=== PATIENT | male | born 1965 | race Two or more races ===

== ENCOUNTER → 2017-01-30 | Outpatient (CLI) | payer BC ==
[~2017-01-30] MED LIST: ASPI-664 PO; HYDR12.58 PO; VALS80TA2 PO
--- NOTE | 2017-01-30 12:39 | RADRPT ---
PROCEDURE: XR right knee. CLINICAL INDICATION: Knee pain TECHNIQUE: AP weightbearing, PA weightbearing, lateral weightbearing and sunrise views are availab le for review. COMPARISON: None available FINDINGS: ACL repair with hardware in place There is moderate to severe osteoarthrosis involving the medial tibial femoral compartment, lateral tibial femoral compartment and patellofemoral compartment. This is associated with joint space narro wing, subchondral sclerosis and osteophytosis. There is otherwise normal mineralization, architecture and alignment. No fractures are identified. No osseous lesions are identified. The soft tissues are unremarkable. IMPRESSION: ACL repair Moderate to severe osteoarthrosis involving the medial tibial femoral compartment, lateral tibial fe moral compartment and patellofemoral compartment. RPTAT: HGDB .Ruben Nixon MD, Date Time Electronically viewed and signed by .Ruben Nixon MD, on 01/30/2017 12:38 .B/
--- NOTE | 2017-01-30 14:39 | RADRPT ---
PROCEDURE: Limited x-ray of both lower extremities. CLINICAL INDICATION: Bilateral leg pain. TECHNIQUE: Single frontal view of both lower extremities was obtained from the hips to the calves. COMPARISON: None. FINDINGS: The hips are grossly normal. There is a right knee anterior cruciate ligament repair with hardware noted. There are moderate degenerative changes of both knees with right worse than left. IMPRESSION: 1. Right knee ACL repair. 2. Moderate degenerative changes of both knees. RPTAT: QQ .Harshal Sage MD, Date Time Electronically viewed and signed by .Harshal Sage MD, on 01/30/2017 14:38 .R/
== END | disposition home or self-care (01) ==
LOC: HKI 10:31
PROVIDERS: ATTEND Orthopaedic Surgery
DX: M25.561 Pain in right knee (principal); M17.11 Unilateral primary osteoarthritis, right knee
CPT/HCPCS: 73564; 77073; Z7500; G0463

== ENCOUNTER 2017-02-02 07:42 | Inpatient (IN) | payer BC ==
[~2017-02-02] VITALS: Ht 180.3 cm; Wt 82.7 kg
[2017-02-02] VITALS (27 sets, daily range): BP systolic 114–149; BP diastolic 56–78; PULSE 84–105; RESP 10–20; Ht 180.3 cm; Wt 82.7 kg
[2017-02-02] MEDS ORDERED: PREGABALIN 300 MG PO X1 PO ONE (08:00)
[2017-02-02] MEDS ORDERED: oxyCODONE (CR) 10 MG TAB [oxyCONTIN] X1 DOSE PO ONE (08:00)
[2017-02-02] MEDS ORDERED: CELECOXIB 400 MG PO X1 DOSE PO ONE (08:00)
[2017-02-02] MEDS ORDERED: EXPAREL NOTE (BUPIVICAINE LIPOSOMAL) XX SCH (08:00)
[2017-02-02] MEDS ORDERED: BUPIVACAINE LIPOSOME/PF 266 MG/20 ML VIAL INFIL ONE (08:00)
[2017-02-02] MEDS ORDERED: TRANEXAMIC ACID 820 MG in SOD CHLORIDE 0.9% 91.8 ML IV ONE (08:00)
[2017-02-02] MEDS ORDERED: CEFAZOLIN 2GM/50 ML (PMX) 50 ML X1 BEFORE INCISION IVPB ONE (08:00)
[2017-02-02] MEDS ORDERED: traMADOL 50 MG TAB X 1 DOSE PO ONE (08:00)
[2017-02-02] MEDS ORDERED: PAIN COCKTAIL-CEFUROXIME IRR ONE ×7 (08:00)
[2017-02-02] MEDS ORDERED: TRANEXAMIC ACID 820 MG in SOD CHLORIDE 0.9% 100 ML IVPB ONE (08:00)
[2017-02-02] MEDS ORDERED: VALS80TA2 PO (08:22)
[2017-02-02] MEDS ORDERED: ASPI-664 PO (08:22)
[2017-02-02] MEDS ORDERED: HYDR12.58 PO (08:22)
[2017-02-02] MEDS ORDERED: FENTAnyl 50 MCG/ML VIAL ONE (09:32)
[2017-02-02] MEDS ORDERED: DEXAMETHASONE 4 MG/ML 1 ML INJ ONE (09:32)
[2017-02-02] MEDS ORDERED: ONDANSETRON 4 MG INJ ONE (09:32)
[2017-02-02] MEDS ORDERED: PROPOFOL 100 ML ONE (09:32)
[2017-02-02] MEDS ORDERED: MIDAZOLAM 1 MG/ML 2 ML INJ ONE (09:32)
[2017-02-02] MEDS ORDERED: GLYCOPYRROLATE 0.4 MG INJ ONE (09:32)
[2017-02-02] MEDS ORDERED: CEFAZOLIN 1 GM INJ ONE ×2 (09:32)
[2017-02-02] MEDS ORDERED: PROPOFOL 0 ML ONE (09:32)
[2017-02-02] MEDS ORDERED: ROCURONIUM 50 MG INJ ONE (09:32)
[2017-02-02] MEDS ORDERED: NEOSTIGMINE 3 MG/3 ML SYRINGE ONE (09:32)
--- NOTE | 2017-02-02 10:18 | HPN ---
Date/Time of Note Date/Time of Note DATE: 02/02/17 TIME: 10:16 Interval H&P Admission Note Pt. seen H&P reviewed: No system changes No change from H&P on 01/25/17 by DOUG Wilkinson ERIK N. MD Feb 02, 2017 10:18
[2017-02-02] MEDS ORDERED: SODIUM CL BACTERIOSTATIC 30 ML INJ ONE (10:25)
[2017-02-02] MEDS ORDERED: POLYMYXIN B 500000 UNIT INJ ONE (10:26)
[2017-02-02] MEDS ORDERED: VANCOMYCIN 1 GM INJ ONE (10:26)
[2017-02-02] MEDS: LACTATED RINGER'S 1,000 ML IV SCH ×4 (10:40→22:18)
[2017-02-02] MEDS ORDERED: METOCLOPRAMIDE 10 MG INJ ONE (11:03)
[2017-02-02] MEDS ORDERED: BACITRACIN 50000 UNITS INJ IRR ONE (11:59)
[2017-02-02] MEDS ORDERED: ONDANSETRON 4 MG INJ IV PRN ×2 (12:00→14:30)
[2017-02-02] MEDS ORDERED: HYDROmorphONE (0.2 MG/ML) 10ML SYG IV PRN ×3 (12:00)
[2017-02-02] MEDS ORDERED: LABETALOL HCL 20MG INJ IV PRN (12:00)
[2017-02-02] MEDS ORDERED: EPHEDrine SULFATE 50 MG/5 ML SYG IV PRN (12:00)
[2017-02-02] MEDS ORDERED: FENTAnyl 50 MCG/ML VIAL IV PRN ×3 (12:00)
[2017-02-02] MEDS ORDERED: MEPERIDINE 25 MG INJ IV PRN (12:00)
[2017-02-02] MEDS ORDERED: hydrALAzine 20 MG INJ IV PRN (12:00)
[2017-02-02] MEDS: traMADol 50 MG TAB PO SCH ×2 (12:00→18:16)
[2017-02-02] MEDS ORDERED: DIPHENHYDRAMINE 50 MG INJ IV PRN (12:00)
[2017-02-02] MEDS ORDERED: TRIMETHOBENZAMIDE 100 MG/ML VIAL IM PRN (12:00)
[2017-02-02] MEDS ORDERED: MIDAZOLAM 1 MG/ML 2 ML INJ IV PRN (12:00)
--- NOTE | 2017-02-02 14:15 | OPR ---
Date/Time of Note Date/Time of Note DATE: 02/02/17 TIME: 14:13 Operative Report Free Text/Dictation Dictation # [id number] Procedure Date: Feb 02, 2017 Preoperative Diagnosis Right Knee OA Postoperative Diagnosis Same Operation Performed Right TKA Surgeon: JULIAN THORNTON MD digital sales assistant: LISSETTE MAURICE PA-C Anesthesia: spinal Anesthesiologist: Chidi Hernandez M.D. Tourniquet Time: 96 minutes Estimated Blood Loss: 50 - 100 ml's Specimens Bone and soft tissue Tubes/Drains Hemovac x 1 Complications: None Pt Condition Post Procedure: stable Disposition: PACU JULIAN THORNTON MD Feb 02, 2017 14:14
[2017-02-02] MEDS ORDERED: ASPIRIN (EC) 325 MG TAB PO ONE (14:30)
[2017-02-02] MEDS ORDERED: HYDROmorphONE 1 MG/ML SYG IV PRN (14:30)
[2017-02-02] MEDS ORDERED: NACL 0.9% 3 ML SYG IV SCH (14:30)
[2017-02-02] MEDS ORDERED: oxyCODONE 5 MG TAB PO PRN ×2 (14:30)
[2017-02-02] MEDS ORDERED: NA PHOSPHATE/BIPHOS 133 ML ENEMA PR PRN (14:30)
[2017-02-02] MEDS ORDERED: BISACODYL 10 MG SUPP PR PRN (14:30)
[2017-02-02] MEDS ORDERED: DIPHENHYDRAMINE 25 MG CAP PO PRN (14:30)
--- NOTE | 2017-02-02 14:43 | PN ---
Date/Time of Note Date/Time of Note DATE: 02/02/17 TIME: 14:41 Assessment/Plan Lines/Catheters IV Catheter Type (from Nrsg): Peripheral IV Assessment/Plan Assessment/Plan Stable in PACU, s/p right TKA -continue antibiotics until drain removed -pain meds as needed -ASA/SCDs for DVT prophylaxis -OOB with PT -monitor drain -check AM labs -d/c guardado in AM XR of the right knee is pending at this time Subjective 24 Hr Interval Summary Stable in PACU. Moving all extremities. Denies any pain. Drowsy from anesthesia. Exam/Review of Systems Vital Signs Vitals Vital Signs Date Time Temp Pulse Resp B/P Pulse Ox O2 Delivery O2 Flow Rate FiO2 02/02/17 14:15 102 10 115/60 100 Nasal Cannula 2.0 02/02/17 14:13 99.1 Exam Free Text/Dictation Dressing dry Incision clean, dry, and intact without redness or drainage Thigh soft 5/5 Quadriceps, Tibialis Anterior, EHL, Gastroc, Soleus, Peroneals Normal sensation Palpable DT/PT, CR <2 sec No distal edema LISSETTE MAURICE PA-C Feb 02, 2017 14:43
[2017-02-02 14:44] LABS: HEMATOCRIT 35.1 % (42.0-52.0); HEMOGLOBIN 11.9 g/dl (14.0-18.0)
--- NOTE | 2017-02-02 14:50 | OPR ---
DATE OF OPERATION: 02/02/2017 PREOPERATIVE DIAGNOSIS: Right knee osteoarthritis. POSTOPERATIVE DIAGNOSIS: Right knee osteoarthritis. OPERATION PERFORMED: Right total knee arthroplasty. SURGEON: Mike Thornton MD TEST PREPARER: KARELY Larkin COMPONENTS USED: DePuy Attune size 8 femoral component, size 7 tibial baseplate , 6-mm polyethylene insert, and a 38-patellar button. ANESTHESIA: Spinal, plus general endotracheal intubation, plus periarticular injection. ANESTHESIOLOGIST: Dr. Hernandez TOURNIQUET TIME: 96 minutes. ESTIMATED BLOOD LOSS: 50 mL. INTRAVENOUS FLUIDS: 2500 mL of crystalloid. SPECIMENS: Bone and soft tissue. DRAINS: Hemovac x1. COMPLICATIONS: None. DISPOSITION: Patient tolerated the procedure well and was taken to the recovery room in stable condition. INDICATIONS: The patient is a 51-year-old gentleman who has had worsening pain in the right knee, with radiographic evidence of severe osteoarthritis. He had a previous ACL reconstruction that has failed. He has tried a multitude of nonsurgical means of treatment to address his pain, including activity modifications, pain medications, intra-articular injections and ambulatory assist devices. Despite these measures, he has had worsening pain and I felt he would benefit from a total knee arthroplasty. The risks, benefits, and alternatives of the procedure were explained in detail to the patient. I explained the risks of the surgery to include but not be limited to, bleeding and possible need for blood transfusion; infection; pain; stiffness; neurovascular injury with possible numbness, weakness, and/or paralysis anywhere from the knee down to the toes; fracture; instability; dislocation; wear and/or loosening of the prosthesis and possible need for future revision; blood clots; pulmonary embolism; and anesthetic complications such as heart attack, stroke, GI bleed, pneumonia, and/or . Ample time was allowed for the patient to ask questions, all of which were addressed and answered. The patient understood the risks involved and wished to proceed. Informed consent was signed prior to the procedure. PROCEDURE: The patient's right knee was initialed with a marking pen in the preoperative area to identify the correct operative site. The patient was brought to the operating room and transferred from the [facility] to the operating table where a spinal anesthetic was administered. The patient was then anesthetized and intubated. A Rosario catheter was placed. A timeout was performed to confirm that the right leg was the correct operative site. The patient was given 2 g of Ancef within one hour prior to the procedure. A tourniquet was placed on the operative proximal thigh. The operative knee and lower extremity were prepped and draped in the usual sterile fashion. The operative lower extremity was elevated and exsanguinated with an Esmarch tourniquet. The proximal thigh tourniquet was inflated to 300 mmHg. The knee was flexed. A midline incision was made and carried down through the subcutaneous tissue and fat with sharp dissection. Limited medial and lateral flaps were raised. A parapatellar arthrotomy, valgus cut was set using the Scint-X-Align navigation device, setting the varus valgus to zero degrees and the flexion at 3 degrees. Synovial fluid was normal in color and consistency. The patella was everted and the knee flexed. There were severe tricompartmental osteoarthritic changes noted. A medial release was performed at the joint line to the midcoronal plane. The ACL and PCL and remnants of the menisci were excised. The OrthoAlign navigation device was then pinned into place on the distal femur and set to 0 degrees varus/valgus and 3 degrees of flexion. The distal cutting block was pinned into place to resect 11 mm of bone. The oscillating saw was used to make the cut. The tibia was subluxed anteriorly. The tibial OrthoAlign navigation device was then pinned into place such that the proximal portion of the guide was pinned in place with centered over the junction of the medial and middle third of the tibial tubercle and with the proximal probe placed at the posterior aspect of the ACL footprint. The guide was than set to 0 degrees varus/valgus and 3 degrees of posterior slope. The cutting block was then pinned in place and the oscillating saw was used to make the cut. The tibia was sized. The extension gap was checked and accommodated a 6-mm spacer block with the knee in full extension. There was no varus or valgus instability. At this point, the femur was sized with the posterior referencing guide. Two holes were drilled in 3 degrees of external rotation. The two holes were in line with the transepicondylar axis, perpendicular to [place]'s line, and in line with the tibial cutoff jig brought up with the knee flexed 90 degrees and tensed with 2 lamina spreaders, suggesting the femoral rotation was correct. The four-in-one cutting block was pinned into place. The anterior and posterior cuts and chamfer cuts were made with the oscillating saw. The flexion gap was checked and accommodated the 6-mm spacer block at 90 degrees. There was no varus or valgus instability, suggesting the flexion and extension gaps were now equal. The central box was cut out on the femur. The tibia was drilled and punched in proper rotation. Trial components were placed into position with a trial insert. The patella was cut down from 26 mm down to 16 mm and sized. Three holes were drilled and the trial button placed in position. With all the trials now in place, the knee was taken through range of motion and came to full extension as evidenced by the fact that with the foot on my abdomen and axial loading, there was no tendency for the knee to flex. The knee was able to be flexed to 125 degrees with good patellar tracking with no lateral tilt or subluxation. At this point, I was satisfied with the overall range of motion, stability, and patellar tracking. The trials were removed. The real components were opened. Two bags of cement were mixed, one with and one without premixed antibiotic. The knee was irrigated with antibiotic saline and sucked dry. Once the cement was in a doughy stage, the real components were cemented into place. The knee was held in full extension, and the patellar component was held with a patellar clamp. All excess cement was removed with curettes. As the cement was hardening, the synovial/capsular layer was infiltrated with a mixture of 150 mg of 0.5% Bupivacaine, 8 mg of Duramorph, 300 mcg of epinephrine, 30 mg of Toradol, 100 mcg of clonidine, 750 mg of cefuroxime and 86 mL of normal saline, followed by an injection of 266 mg of liposomal Bupivacaine. A Hemovac drain was placed in the deep portion of the wound and brought out the anterolateral thigh. Once the cement was completely hardened, the trial liner was removed, and the real insert was opened. The tourniquet was let down, and there was good hemostasis. The knee was then irrigated with a mixture of betadine/saline and then antibiotic saline with pulsatile lavage. The real insert was impacted into the tibia and reduced onto to the femur. The arthrotomy was closed with a few interrupted #1 Ethibond in a figure-of- eight fashion, and then closed in a watertight fashion with a running #2 Stratafix suture. Knee flexion was checked against gravity and came to 125 degrees. The subcutaneous layer was irrigated and closed with 2-0 Statafix, and then 3-0 Vicryl and then kindra on the skin. The wound was covered with an occlusive dressing, and secured with cast padding and a bias dressing. The drain was secured with 3-0 nylon. The sponge and needle counts were correct at the end of the case. The patient was then awakened, extubated, and taken to the recovery room in stable condition. Dictated By: MIKE THORNTON MD EZ/NTS Conf#: [id number] DID#: [id number] MTDD
[2017-02-02] MEDS: CEFAZOLIN 2 GM/50 ML (PMX) 50 ML IVPB SCH (15:14)
[2017-02-02 15:36] LABS: CALCIUM 8.8 mg/dl (8.4-10.2); CREATININE 0.85 mg/dl (0.61-1.24)
[2017-02-02 15:38] LABS: POTASSIUM 3.4 mmol/L (3.5-5.1)
--- NOTE | 2017-02-02 16:32 | RADRPT ---
PROCEDURE: Intraoperative imaging of the right knee with fluoroscopy. CLINICAL INDICATION: Right knee pain. Intraoperative. TECHNIQUE: 6 images of the right knee were obtained in the operating room with an image intensifie r. No radiologist was in attendance. 0.2 minutes of fluoroscopy time was used. COMPARISON: 01/30/2017. FINDINGS: Images demonstrate components of a total right knee arthroplasty and removal of the screw in the pro ximal right tibia. IMPRESSION: 1. Intraoperative imaging of the right knee. RPTAT: QQ .Harshal Sage MD, MD Date Time Electronically viewed and signed by .Harshal Sage MD, on 02/02/2017 16:31 .R/
--- NOTE | 2017-02-02 16:32 | RADRPT ---
PROCEDURE: Right knee radiographs. CLINICAL INDICATION: Right knee pain. Postop. TECHNIQUE: Two views. Frontal and lateral. COMPARISON: Intraoperative imaging done earlier the same day. FINDINGS: There is no fracture or dislocation. Anterior skin kindra and surgical drain are noted. There is a screw in the distal lateral femur fr om prior anterior cruciate ligament repair. There is a total right knee arthroplasty which appears satisfactory. There is no lytic or blastic lesion. There is no joint effusion. IMPRESSION: 1. Satisfactory postoperative appearance of the right knee. RPTAT: QQ .Harshal Sage MD, MD Date Time Electronically viewed and signed by .Harshal Sage MD, on 02/02/2017 16:32 .R/
[2017-02-02] MEDS ORDERED: TRANEXAMIC ACID 830 MG in SOD CHLORIDE 0.9% 100 ML IVPB ONE ×2 (17:30→20:30)
[2017-02-02] MEDS: ACETAMINOPHEN 1000MG/100ML IV 100 ML IVPB SCH (18:16)
[2017-02-02] MEDS: PANTOPRAZOLE (EC) 40 MG TAB PO SCH (18:16)
[2017-02-02] MEDS: PREGABALIN 50 MG CAP PO SCH (20:12)
[2017-02-02] MEDS: DOCUSATE SODIUM 100 MG CAP PO SCH (20:12)
[2017-02-03] MEDS: ACETAMINOPHEN 1000MG/100ML IV 100 ML IVPB SCH ×3 (00:13→12:03)
[2017-02-03] MEDS: traMADol 50 MG TAB PO SCH ×5 (00:14→23:36)
[2017-02-03 00:19] VITALS: BP 94/50; PULSE 73; RESP 16
[2017-02-03] MEDS: CEFAZOLIN 2 GM/50 ML (PMX) 50 ML IVPB SCH ×2 (01:11→09:37)
[2017-02-03] MEDS: LACTATED RINGER'S 1,000 ML IV SCH ×6 (04:00→23:38)
--- NOTE | 2017-02-03 04:07 | CONS ---
DATE OF ADMISSION: 02/02/2017 DATE OF CONSULTATION: 02/02/17 REASON FOR CONSULTATION: Medical management. PHYSICIAN REQUESTING CONSULTATION: Dr. Mike Patterson HISTORY OF PRESENT ILLNESS: This is a pleasant 51-year-old gentleman with past medical history of hypertension who had right knee surgical intervention about 20 years ago and was doing pretty well until the past several years during which he has been having right knee pain with worsening of the pain for the past 2 to 3 years with radiographic evidence of severe arthritis. He had previous ACL reconstruction that has failed. He has tried multiple nonsurgical means of treatment to address his pain including activity modification, pain management, intraarticular injection, and devices. Despite these measures , he has had worsening of the pain and has been seen and evaluated by orthopedic surgeon. It was felt that he would benefit from total knee arthroplasty. The risks and benefits of the surgery were discussed with him, and he has decided to proceed with surgical intervention. On 02/02/2017, after signing consent, the patient was taken to OR, and under spinal plus general endotracheal intubation, plus periarticular injection, the patient had a right total knee arthroplasty which he tolerated the procedure well and was taken to recovery room. His vitals were found to be stable. At this time, the patient denies having any chest pain, shortness of breath, nausea, vomiting, or diarrhea. No headache, dizziness, or lightheadedness. No change in visual acuity, diplopia, or photophobia. No abdominal pain. No dysuria, hematuria, urgency, incontinence. No change in the color of stool. No change in appetite. The patient does live alone. He does not have support at his house. There is no recent travel history. No sick contact. The complaint was right knee pain with worsening of the pain for the past several years. PAST MEDICAL AND SURGICAL HISTORY: 1. Hypertension. 2. History of right knee ACL tear status post surgical intervention. MEDICATIONS: 1. Aspirin. 2. Hydrochlorothiazide. 3. Losartan. ALLERGIES: NO KNOWN DRUG ALLERGIES. FAMILY HISTORY: Noncontributory. SOCIAL HISTORY: Negative x3 for smoking, alcohol, illicit drugs. REVIEW OF SYSTEMS: As above per HPI. Otherwise, the 12 point review of systems has been found to be negative. PHYSICAL EXAMINATION: VITAL SIGNS: Temperature 98.1, pulse 85, respiration rate 20, blood pressure 116/59, saturating 98% on room air. GENERAL APPEARANCE: The patient is lying in bed comfortably without any distress. He is awake, alert, oriented. He is able to answer my questions properly. EYES AND ENT: Conjunctivae and lids are normal. Pupils are normal. Extraocular normal. Hearing grossly normal. Lips, teeth, and gums are normal. Oral mucosa is moist. NECK: Supple. Trachea is midline. No lymphadenopathy. RESPIRATORY: Effort is normal. Clear to auscultation bilaterally. CARDIOVASCULAR: Normal S1, S2. Regular rhythm and rate. No murmur, no bruits , no edema. Peripheral pulses, radial pulses palpable. Cap refill is normal. CHEST: Normal expansion of thorax during inspiration. GASTROINTESTINAL: Abdomen is soft, nontender, not distended. Bowel sounds present. No guarding, no rebound. GENITOURINARY: Deferred. MUSCULOSKELETAL: Upper extremity within normal limits. Left lower extremity within normal limits. Right lower extremity status post right knee arthroplasty. Surgical site is wrapped with Eric bandage with ____ measures. Full range of motion in bilateral feet and ankles. NEUROLOGIC: Cranial nerves II through XII are grossly intact. PSYCHIATRIC: Normal judgment and insight. Alert and oriented x3. Mood and affect is normal. LABORATORY WORK AND IMAGING: Hemoglobin 11.9, hematocrit 35.1. Sodium 138, potassium 3.4, chloride 100, bicarbonate 26, BUN 14, creatinine 0.85, glucose 165, calcium 8.8. ASSESSMENT AND PLAN: 1. Right knee osteoarthritis. The patient is status post right total knee arthroplasty. Continue pain medication and PT and OT evaluate and treat. Continue to monitor drain. The patient was treated with cefazolin during the course of surgery. We will continue antibiotics. 2. Essential hypertension, well controlled on medical management. 3. For deep venous thrombosis prophylaxis, on aspirin as per orthopedic surgeon recommendation. 4. For gastrointestinal prophylaxis, on Protonix. We will continue to monitor the patient closely. Further recommendations, management, and treatment as per clinical course. Dictated By: JOEL NOVAK/DEE DEE Conf#: [id number] DID#: [id number] JENNIFFER
[2017-02-03 05:10] LABS: HEMATOCRIT 33.5 % (42.0-52.0)
[2017-02-03 05:18] LABS: POTASSIUM 4.1 mmol/L (3.5-5.1)
[2017-02-03 05:21] LABS: CREATININE 0.8 mg/dl (0.61-1.24)
[2017-02-03 05:22] LABS: CALCIUM 8.9 mg/dl (8.4-10.2)
[2017-02-03] MEDS: PANTOPRAZOLE (EC) 40 MG TAB PO SCH ×2 (05:53→17:28)
[2017-02-03 08:14] VITALS: BP 129/66; RESP 18
[2017-02-03] MEDS: DOCUSATE SODIUM 100 MG CAP PO SCH ×2 (08:29→21:00)
[2017-02-03] MEDS: ASPIRIN (EC) 325 MG TAB PO SCH ×2 (08:29→21:00)
[2017-02-03] MEDS: CELECOXIB 200 MG CAP PO SCH (08:29)
[2017-02-03] MEDS: PREGABALIN 50 MG CAP PO SCH ×2 (08:30→21:00)
[2017-02-03] MEDS: HYDROCHLOROTHIAZIDE 12.5 MG CAP PO SCH (08:30)
[2017-02-03] MEDS: VALSARTAN 80 MG TAB PO SCH (08:30)
--- NOTE | 2017-02-03 08:38 | PN ---
Date/Time of Note Date/Time of Note DATE: 02/03/17 TIME: 08:36 Assessment/Plan Lines/Catheters IV Catheter Type (from Nrsg): Peripheral IV Rosario in Place (from Nrsg): Yes Assessment/Plan Assessment/Plan Stable POD #1, s/p right TKA -d/c abx -pain meds as needed -ASA/SCDs for DVT prophylaxis -drain removed -OOB with PT -check AM labs -encouraged using towel roll and avoid putting anything behind knee -d/c planning. Home versus [facility] upon discharge Subjective 24 Hr Interval Summary No acute overnight events. Denies significant pain, but complaining of some mild pain behind the knee. VSS, afebrile. Discharge home versus SNF when stable. Exam/Review of Systems Vital Signs Vitals Vital Signs Date Time Temp Pulse Resp B/P Pulse Ox O2 Delivery O2 Flow Rate FiO2 02/03/17 08:14 98.2 86 18 129/66 100 02/03/17 00:19 Room Air 02/02/17 14:45 2.0 Intake and Output 02/02/17 02/02/17 02/03/17 15:00 23:00 07:00 Intake Total 2600 ml 1255 ml 1445 ml Output Total 370 ml 1215 ml 2400 ml Balance 2230 ml 40 ml -955 ml Exam Free Text/Dictation Hemovac: 235cc Dressing dry Incision clean, dry, and intact without redness or drainage Thigh soft 5/5 Quadriceps, Tibialis Anterior, EHL, Gastroc, Soleus, Peroneals Normal sensation Palpable DT/PT, CR <2 sec No distal edema Results Result Diagram: 02/03/17 0445 02/03/17 0445 LISSETTE MAURICE PA-C Feb 03, 2017 08:38
[2017-02-03] MEDS ORDERED: HYDROCODONE/APAP (7.5/325) TAB PO PRN (09:00)
--- NOTE | 2017-02-03 10:08 | PN ---
Date/Time of Note Date/Time of Note DATE: 02/03/17 TIME: 10:05 Assessment/Plan VTE Prophylaxis VTE Prophylaxis Intervention: other Lines/Catheters IV Catheter Type (from Nrs): Saline Lock Urinary Cath still in place: No Reason Cath still needed: other (indicate) Assessment/Plan Chief Complaint/Hosp Course ASSESSMENT AND PLAN: 1. Right knee osteoarthritis. The patient is status post right total knee arthroplasty. Continue pain medication and PT and OT evaluate and treat. Continue postsurgical care 2. Essential hypertension, well controlled on medical management. 3. Anemia, likely postoperatively, follow-up iron panel and treat accordingly 4. For deep venous thrombosis prophylaxis, on aspirin as per orthopedic surgeon recommendation. 5. For gastrointestinal prophylaxis, on Protonix. We will continue to monitor the patient closely. Further recommendations, management, and treatment as per clinical course. Problems: Subjective 24 Hr Interval Summary Free Text/Dictation Patient denies any chest pain or shortness of breath Tolerating oral intake Drain has been removed this morning by orthopedic surgeon Denies of any pain in lower extremity Exam/Review of Systems Vital Signs Vitals Vital Signs Date Time Temp Pulse Resp B/P Pulse Ox O2 Delivery O2 Flow Rate FiO2 02/03/17 08:14 98.2 86 18 129/66 100 02/03/17 00:19 Room Air 02/02/17 14:45 2.0 Intake and Output 02/02/17 02/02/17 02/03/17 15:00 23:00 07:00 Intake Total 2600 ml 1255 ml 1445 ml Output Total 370 ml 1215 ml 2400 ml Balance 2230 ml 40 ml -955 ml Exam General: The patient is well-developed, Not in acute distress. HEENT: Atraumatic, normocephalic. The pupils are equal and round . Neck: Supple with full range of motion. Chest: Normal expansion of the thorax during inspiration Lungs: Clear to auscultation bilaterally Heart: Normal S1-S2, Regular rhythm and rate. Abdomen: Soft , nontender, nondistended , bowel sounds are present. Extremities: Right knee surgical site is dry and clean with dry dressing, no edema no cyanosis Neurologic: Normal mental status,The patient is awake, alert and oriented . Results Result Diagram: 02/03/17 0445 02/03/17 0445 Results 24 hrs Laboratory Tests Test 02/02/17 14:40 02/03/17 04:45 Hemoglobin 11.9 L 11.0 L Hematocrit 35.1 L 33.5 L Sodium Level 138 138 Potassium Level 3.4 L 4.1 Chloride Level 100 101 Carbon Dioxide Level 26 28 Anion Gap 15 13 Blood Urea Nitrogen 14 14 Creatinine 0.85 0.80 Glucose Level 165 143 Calcium Level 8.8 8.9 Medications Medications Current Medications Lactated Ringer's (Lr) 1,000 ml @ 100 mls/hr Q10H IV Last administered on 02/03 08:28; Admin Dose 100 MLS/HR; Start 02/02/17 at 08:00 Miscellaneous Information 1 ea NOTE XX ; Start 02/02/17 at 08:00; Stop 02/06/17 at 07:59 Hydrochlorothiazide (Hydrochlorothiazide) 12.5 mg DAILY PO Last administered on 02/03/17 08:30; Admin Dose 12.5 MG; Start 02/03/17 at 09:00 Valsartan 80 mg 80 mg DAILY PO Last administered on 02/03/17 08:30; Admin Dose 80 MG; Start 02/03/17 at 09:00 Lactated Ringer's (Lr) 1,000 ml @ 125 mls/hr Q8H IV Last administered on 05:53; Admin Dose 125 MLS/HR; Start 02/02/17 at 14:09 Celecoxib 200 mg 200 mg DAILY PO Last administered on 02/03/17 08:29; Admin Dose 200 MG; Start 02/03/17 at 09:00 Acetaminophen (Ofirmev 1000mg/ 100ml Iv) 100 ml @ 400 mls/hr Q6 IVPB Last administered on 02/03/17 05:52; Admin Dose 400 MLS/HR; Start 02/02/17 at 18:00 ; Stop 02/03/17 at 17:59 Tramadol HCl (Ultram) 50 mg Q6 PO Last administered on 02/03/17 05:53; Admin Dose 50 MG; Start 02/02/17 at 12:00; Stop 02/05/17 at 11:59 Hydromorphone HCl (Dilaudid) 1 mg Q3H PRN IV PAIN LEVEL 8-10; Start 02/02/17 at 14:30 Ondansetron HCl (Zofran Inj) 4 mg Q6H PRN IV NAUSEA AND/OR VOMITING; Start at 14:30 Bisacodyl (Dulcolax Supp) 10 mg Q12H PRN OK CONSTIPATION; Start 02/02/17 at 14: 30 Magnesium Hydroxide (Milk Of Mag) 30 ml BID PRN PO CONSTIPATION; Start at 14:30 Sodium Biphosphate/ Sodium Phosphate (Fleet Enema) 133 ml DAILY PRN OK CONSTIPATION; Start 02/02/17 at 14:30 Docusate Sodium (Colace) 100 mg BID PO Last administered on 02/03/17 08:29; Admin Dose 100 MG; Start 02/02/17 at 21:00 Diphenhydramine HCl (Benadryl) 25 mg Q6H PRN PO PRURITUS; Start 02/02/17 at 14: 30 Aspirin (Ecotrin) 325 mg BID PO Last administered on 02/03/17 08:29; Admin Dose 325 MG; Start 02/03/17 at 09:00 Pantoprazole (Protonix Tab) 40 mg BID@06,18 PO Last administered on 02/03/17 05:53; Admin Dose 40 MG; Start 02/02/17 at 18:00 Pregabalin (Lyrica) 50 mg BID PO Last administered on 02/03/17 08:30; Admin Dose 50 MG; Start 02/02/17 at 21:00 Acetaminophen/ Hydrocodone Bitart ([place] (7.5-325)) 1 tab Q4H PRN PO PAIN LEVEL 1-3; Start 02/03/17 at 09:00 Acetaminophen/ Hydrocodone Bitart ([place] (7.5-325)) 2 tab Q4H PRN PO PAIN LEVEL 4-7; Start 02/03/17 at 09:00 JOEL LYMAN MD Feb 03, 2017 10:08
[2017-02-03 11:14] LABS: ADD UMIC YES; URINE BILIRUBIN (Dip) NEGATIVE (NEGATIVE); URINE BLOOD (Dip) 3+ (NEGATIVE); URINE COLOR LT. YELLOW (YELLOW); URINE GLUCOSE (Dip) NEGATIVE (NEGATIVE); URINE KETONES (Dip) NEGATIVE (NEGATIVE); URINE LEUKOCYTE ESTERASE (Dip) NEGATIVE (NEGATIVE); URINE NITRITE (Dip) NEGATIVE (NEGATIVE); URINE TOTAL PROTEIN (Dip) NEGATIVE (NEGATIVE); URINE UROBILINOGEN (Dip) 0.2 E.U./dL (0.1-1.0)
[2017-02-03 11:44] LABS: BACTERIA,URINE FEW
[2017-02-03] MEDS: HYDROCODONE/APAP (7.5/325) TAB PO PRN ×2 (14:21→21:02)
[2017-02-03 19:40] VITALS: BP 136/77; RESP 20
[2017-02-04] MEDS: LACTATED RINGER'S 1,000 ML IV SCH ×3 (06:09→14:09)
[2017-02-04] MEDS: traMADol 50 MG TAB PO SCH ×4 (06:23→23:31)
[2017-02-04] MEDS: PANTOPRAZOLE (EC) 40 MG TAB PO SCH ×2 (06:23→17:50)
[2017-02-04] MEDS: HYDROCODONE/APAP (7.5/325) TAB PO PRN (06:48)
[2017-02-04 07:09] LABS: HEMATOCRIT 32.4 % (42.0-52.0); HEMOGLOBIN 10.4 g/dl (14.0-18.0)
[2017-02-04 07:49] LABS: CALCIUM 8.6 mg/dl (8.4-10.2); CREATININE 0.89 mg/dl (0.61-1.24); IRON 20 ug/dl (35-150)
[2017-02-04 07:58] LABS: TOTAL IRON BINDING CAPACITY 267 ug/dl (241-421)
[2017-02-04 08:07] VITALS: BP 102/60; RESP 16
--- NOTE | 2017-02-04 08:38 | PDOCDIS ---
Discharge Instructions DIAGNOSIS Discharge Diagnosis: s/p right TKA CONDITION Patient Condition: Good HOME CARE INSTRUCTIONS: Diet Instructions: RegularSpecial Diet: REGULAR ACTIVITY: Activity Restrictions: Slowly Increase Activity Rest between Activity Avoid heavy lifting Do not operate Machinery Do not operate Power Tool Avoid Heavy Housework Keep Limb Elevated Bathing Restrictions: Shower FOLLOW UP/APPOINTMENTS Appointments follow up in the office in 1 week OTHER ORDERS: Other Orders: S/P TKA Physical Therapy: Three times per week at home x 2 weeks Daily in Rehab/SNF WB STATUS: WBAT 1. Strengthening exercises for both upper and un-operated lower extremities. 2. Gait training with front wheeled walker 3. Active range of motion exercises to operative knee. 4. When not working on knee range of motion exercises, distal towel roll under operative ankle/distal calf to promote full extension. 5. DO NOT PUT ANYTHING BEHIND OPERATIVE KNEE!!! 6. Quadriceps and hamstring strengthening. 7. May switch to cane in contra lateral hand 6 weeks after surgery. 8. Physical Therapy can open case if nursing is not available. 9. Use Ice Machine as instructed from date of surgery while at rest 3X/day. 10. Patient requires mobile SCDs to reduce risk of developing DVT following TKA. Patient will use the mobile SCDs for 30 days postoperatively. Bathing assistance by home health aide twice weekly if Medicare patient. Occupational Therapy: Evaluation for assistive devices and ADL training. Wound Care: Keep incision dry & covered with Tegaderm until first visit with Dr. Rocha Anticoagulation Orders: Enteric Coated Aspirin 325 mg po bid x 6 weeks from date of surgery Follow-up:Call for an appointment with Dr. Rocha in 1 week after discharged from hospital at DME Orders: FWMarissa, 3-in-1 Commode, Polar ice machine, Mobile SCDs LISSETTE MAURICE PA-C Feb 04, 2017 08:38
[2017-02-04] MEDS ORDERED: TRAM50TA2 PO (08:40)
[2017-02-04] MEDS ORDERED: GABA300C PO (08:40)
[2017-02-04] MEDS ORDERED: PANT40TA4 PO (08:40)
[2017-02-04] MEDS ORDERED: HYDR-905 PO (08:40)
[2017-02-04] MEDS: VALSARTAN 80 MG TAB PO SCH ×2 (09:00→09:14)
--- NOTE | 2017-02-04 09:04 | PN ---
Date/Time of Note Date/Time of Note DATE: 02/04/17 TIME: 09:02 Assessment/Plan Lines/Catheters IV Catheter Type (from Nrsg): Saline Lock Rosario in Place (from Nrsg): No Assessment/Plan Assessment/Plan Stable POD #2, s/p right TKA -pain meds as needed -ASA/SCDs -dressing changed -OOB with PT -ARU eval ordered by Dr. Murray -check AM labs -d/c planning. ARU versus SNF versus home tomorrow Subjective 24 Hr Interval Summary No acute overnight events. Having more pain as local anesthesia work off, but controlled by norco. Walked 300 feet with PT. Would like to be evaluated for ARU versus SNF. VSS, afebrile. Exam/Review of Systems Vital Signs Vitals Vital Signs Date Time Temp Pulse Resp B/P Pulse Ox O2 Delivery O2 Flow Rate FiO2 02/04/17 08:07 98.3 16 102/60 98 02/03/17 19:40 72 02/03/17 00:19 Room Air 02/02/17 14:45 2.0 Intake and Output 02/03/17 02/03/17 02/04/17 15:00 23:00 07:00 Intake Total 150 ml 2060 ml 600 ml Output Total 1200 ml 960 ml Balance 150 ml 860 ml -360 ml Exam Free Text/Dictation Dressing dry Incision clean, dry, and intact without redness or drainage Thigh soft 5/5 Quadriceps, Tibialis Anterior, EHL, Gastroc, Soleus, Peroneals Normal sensation Palpable DT/PT, CR <2 sec No distal edema Results Result Diagram: 02/04/17 0615 02/04/17 0615 LISSETTE MAURICE PA-C Feb 04, 2017 09:04
[2017-02-04] MEDS: CELECOXIB 200 MG CAP PO SCH (09:14)
[2017-02-04] MEDS: HYDROCHLOROTHIAZIDE 12.5 MG CAP PO SCH (09:15)
[2017-02-04] MEDS: DOCUSATE SODIUM 100 MG CAP PO SCH ×2 (09:15→19:57)
[2017-02-04] MEDS: ASPIRIN (EC) 325 MG TAB PO SCH ×2 (09:15→19:57)
[2017-02-04] MEDS: PREGABALIN 50 MG CAP PO SCH ×2 (09:15→19:56)
[2017-02-04] MEDS ORDERED: KETOROLAC 30 MG INJ IV STA (11:51)
[2017-02-04] MEDS: FERROUS SULFATE (EC) 325 MG TAB PO SCH ×2 (12:21→19:56)
--- NOTE | 2017-02-04 16:04 | PN ---
Date/Time of Note Date/Time of Note DATE: 02/04/17 TIME: 16:01 Assessment/Plan VTE Prophylaxis VTE Prophylaxis Intervention: other (per orthopedic surgeon ) Lines/Catheters IV Cathe[facility] Type (from [facility] Saline Lock Urinary Cath still in place: No Assessment/Plan Chief Complaint/Hosp Course Assessment and plan 1. Right knee arthritis status post arthroplasty. Continue with analgesics. Status post surgical intervention. Continue postop care. Physical therapy following.. Disposition and plan: Appears overall stable. Discharge planning. Continue with analgesics. Physical therapy to follow Discussed plan of care with Dr. Cedillo Problems: Subjective 24 Hr Interval Summary Free Text/Dictation still has some right knee pain. no other specific complaints Exam/Review of Systems Vital Signs Vitals Vital Signs Date Time Temp Pulse Resp B/P Pulse Ox O2 Delivery O2 Flow Rate FiO2 02/04/17 08:07 98.3 16 102/60 98 02/03/17 19:40 72 02/03/17 00:19 Room Air 02/02/17 14:45 2.0 Intake and Output 02/03/17 02/03/17 02/04/17 15:00 23:00 07:00 Intake Total 150 ml 2060 ml 600 ml Output Total 1200 ml 960 ml Balance 150 ml 860 ml -360 ml Exam Constitutional: alert, oriented Psych: nl mood/affect Head: normocephalic Neck: non-tender, supple, No jvd Respiratory: clear to auscultation, normal air movement Cardiovascular: regular rate and rhythm Gastrointestinal: non-tender, soft Musculoskeletal: other (s/p right knee arhtroplasty) Neurological: ELECTRONIC DEVICE REPAIRER II-XII intact, nl mental status Results Result Diagram: 02/04/17 0615 02/04/17 0615 Results 24 hrs Laboratory Tests Test 02/04/17 06:15 Hemoglobin 10.4 L Hematocrit 32.4 L Sodium Level 137 Potassium Level 4.0 Chloride Level 102 Carbon Dioxide Level 34 H Anion Gap 5 #L Blood Urea Nitrogen 16 Creatinine 0.89 Glucose Level 99 # Hemoglobin A1c 5.5 Calcium Level 8.6 Iron Level 20 L Total Iron Binding Capacity 267 Percent Iron Saturation 7 L Ferritin 162.0 Medications Medications Current Medications Lactated Ringer's (Lr) 1,000 ml @ 100 mls/hr Q10H IV Last administered on 02/03t 08:28; Admin Dose 100 MLS/HR; Start 02/02/17 at 08:00 Miscellaneous Information 1 ea NOTE XX ; Start 02/02/17 at 08:00; Stop 02/06/17 at 07:59 Hydrochlorothiazide (Hydrochlorothiazide) 12.5 mg DAILY PO Last administered on 02/04/17 09:15; Admin Dose 12.5 MG; Start 02/03/17 at 09:00 Valsartan 80 mg 80 mg DAILY PO Last administered on 02/03/17 08:30; Admin Dose 80 MG; Start 02/03/17 at 09:00 Lactated Ringer's (Lr) 1,000 ml @ 125 mls/hr Q8H IV Last administered on 05:53; Admin Dose 125 MLS/HR; Start 02/02/17 at 14:09 Celecoxib (Celebrex) 200 mg DAILY PO Last administered on 02/04/17 09:14; Admin Dose 200 MG; Start 02/03/17 at 09:00 Tramadol HCl (Ultram) 50 mg Q6 PO Last administered on 02/04/17 06:23; Admin Dose 50 MG; Start 02/02/17 at 12:00; Stop 02/05/17 at 11:59 Hydromorphone HCl (Dilaudid) 1 mg Q3H PRN IV PAIN LEVEL 8-10; Start 02/02/17 at 14:30 Ondansetron HCl (Zofran Inj) 4 mg Q6H PRN IV NAUSEA AND/OR VOMITING; Start at 14:30 Bisacodyl (Dulcolax Supp) 10 mg Q12H PRN [place] CONSTIPATION; Start 02/02/17 at 14: 30 Magnesium Hydroxide (Milk Of Mag) 30 ml BID PRN PO CONSTIPATION; Start at 14:30 Sodium Biphosphate/ Sodium Phosphate (Fleet Enema) 133 ml DAILY PRN [place] CONSTIPATION; Start 02/02/17 at 14:30 Docusate Sodium (Colace) 100 mg BID PO Last administered on 02/04/17 09:15; Admin Dose 100 MG; Start 02/02/17 at 21:00 Diphenhydramine HCl (Benadryl) 25 mg Q6H PRN PO PRURITUS; Start 02/02/17 at 14: 30 Aspirin (Ecotrin) 325 mg BID PO Last administered on 02/04/17 09:15; Admin Dose 325 MG; Start 02/03/17 at 09:00 Pantoprazole (Protonix Tab) 40 mg BID@18 PO Last administered on 02/04/17 06:23; Admin Dose 40 MG; Start 02/02/17 at 18:00 Pregabalin (Lyrica) 50 mg BID PO Last administered on 02/04/17 09:15; Admin Dose 50 MG; Start 02/02/17 at 21:00 Ferrous Sulfate (Ferrous Sulfate (Ec)) 325 mg TID PO Last administered on 12:21; Admin Dose 325 MG; Start 02/04/17 at 13:00 Acetaminophen/ Hydrocodone Bitart ([place] (5/325)) 1 tab Q4H PRN PO PAIN; Start 02/04/17 at 16:00 DERECK PITTS Feb 04, 2017 16:03
[2017-02-04] MEDS: MAGNESIUM HYDROXIDE 30ML CUP PO PRN (19:17)
[2017-02-04] MEDS: HYDROCODONE/APAP (5/325) TAB PO PRN (19:56)
[2017-02-04 20:31] VITALS: BP 129/76; RESP 20
[2017-02-05] MEDS: HYDROCODONE/APAP (5/325) TAB PO PRN ×4 (00:27→12:21)
[2017-02-05 06:29] LABS: HEMATOCRIT 33.8 % (42.0-52.0); HEMOGLOBIN 11.1 g/dl (14.0-18.0)
[2017-02-05] MEDS: traMADol 50 MG TAB PO SCH (06:36)
[2017-02-05] MEDS: PANTOPRAZOLE (EC) 40 MG TAB PO SCH (06:36)
[2017-02-05 06:47] LABS: CALCIUM 8.6 mg/dl (8.4-10.2); CREATININE 0.86 mg/dl (0.61-1.24); POTASSIUM 3.9 mmol/L (3.5-5.1)
[2017-02-05 08:01] VITALS: BP 103/67; RESP 14
[2017-02-05] MEDS: CELECOXIB 200 MG CAP PO SCH (08:18)
[2017-02-05] MEDS: VALSARTAN 80 MG TAB PO SCH (08:19)
[2017-02-05] MEDS: DOCUSATE SODIUM 100 MG CAP PO SCH (08:19)
[2017-02-05] MEDS: PREGABALIN 50 MG CAP PO SCH (08:20)
[2017-02-05] MEDS: ASPIRIN (EC) 325 MG TAB PO SCH (08:20)
[2017-02-05] MEDS: FERROUS SULFATE (EC) 325 MG TAB PO SCH ×2 (08:20→12:20)
[2017-02-05] MEDS: HYDROCHLOROTHIAZIDE 12.5 MG CAP PO SCH (08:20)
--- NOTE | 2017-02-05 08:58 | PN ---
Date/Time of Note Date/Time of Note DATE: 02/05/17 TIME: 08:55 Assessment/Plan Lines/Catheters IV Catheter Type (from Nrsg): Saline Lock Rosario in Place (from Nrsg): No Assessment/Plan Assessment/Plan Stable POD 3, s/p right TKA -pain meds as needed -OOB with PT -dressing changed -education patient again on importance of using towel roll and keeping knee straight while in bed -ASA/SCDs for DVT prophylaxis -transfer to ARU today Subjective 24 Hr Interval Summary No acute overnight events. Pain medication was lowered per his request but now he states it was not controlling his pain. Was accepted to ARU and stable for transfer today. Patient continues to bend his knee and elevated lower third of bed despite being told numerous times to keep knee in extension to prevent arthrofibrosis. Can perform gentle ROM exercises in bed as tolerated. VSS, afebrile. Will go to ARU today. Exam/Review of Systems Vital Signs Vitals Vital Signs Date Time Temp Pulse Resp B/P Pulse Ox O2 Delivery O2 Flow Rate FiO2 02/05/17 08:01 98.1 72 14 103/67 98 02/03/17 00:19 Room Air 02/02/17 14:45 2.0 Intake and Output 02/04/17 02/04/17 02/05/17 15:00 23:00 07:00 Intake Total 780 ml 1420 ml Output Total 1600 ml Balance 780 ml -180 ml Exam Free Text/Dictation Dressing dry Incision clean, dry, and intact without redness or drainage Thigh soft 5/5 Quadriceps, Tibialis Anterior, EHL, Gastroc, Soleus, Peroneals Normal sensation Palpable DT/PT, CR <2 sec No distal edema Results Result Diagram: 02/05/17 0443 02/05/17 0443 LISSETTE MAURICE PA-C Feb 05, 2017 08:58
[2017-02-05] MEDS: MAGNESIUM HYDROXIDE 30ML CUP PO PRN (13:24)
--- NOTE | 2017-02-05 15:11 | PN ---
Date/Time of Note Date/Time of Note DATE: 02/05/17 TIME: 15:09 Assessment/Plan VTE Prophylaxis VTE Prophylaxis Intervention: other (per orthopedic surgeon recs ) Lines/Catheters IV Catheter Type (from Nrsg): Saline Lock Urinary Cath still in place: No Assessment/Plan Chief Complaint/Hosp Course Assessment and plan 1. Right knee arthritis status post arthroplasty. Continue with analgesics. Status post surgical intervention. Continue postop care. Physical therapy following.. Disposition and plan: plan for aru transfer. cont supportive care . Discussed plan of care with Dr. Cedillo Problems: Subjective 24 Hr Interval Summary Free Text/Dictation reports better pain control today on right knee Exam/Review of Systems Vital Signs Vitals Vital Signs Date Time Temp Pulse Resp B/P Pulse Ox O2 Delivery O2 Flow Rate FiO2 02/05/17 08:01 98.1 72 14 103/67 98 02/03/17 00:19 Room Air 02/02/17 14:45 2.0 Intake and Output 02/04/17 02/04/17 02/05/17 15:00 23:00 07:00 Intake Total 780 ml 1420 ml Output Total 1600 ml Balance 780 ml -180 ml Exam Psych: nl mood/affect Head: normocephalic Eyes: nl conjunctiva Respiratory: normal air movement Cardiovascular: regular rate and rhythm Gastrointestinal: non-tender, soft Musculoskeletal: swelling (rle s/p surgical intervention. site cdi ) Neurological: GLASS BREAKER II-XII intact, nl mental status, nl speech Results Result Diagram: 02/05/17 0443 02/05/17 0443 Results 24 hrs Laboratory Tests Test 02/05/17 04:43 Hemoglobin 11.1 L Hematocrit 33.8 L Sodium Level 134 L Potassium Level 3.9 Chloride Level 97 Carbon Dioxide Level 30 Anion Gap 11 Blood Urea Nitrogen 15 Creatinine 0.86 Glucose Level 104 Calcium Level 8.6 DERECK PITTS Feb 05, 2017 15:11
--- NOTE | 2017-02-05 19:18 | DS ---
DATE OF ADMISSION: 02/02/2017 DATE OF DISCHARGE: 02/05/2017 CONDITION ON DISCHARGE: Stable. ADMITTING DIAGNOSIS: Right knee osteoarthritis. DISCHARGE DIAGNOSIS: Status post right total knee arthroplasty. PROCEDURE PERFORMED: Right total knee arthroplasty. HOSPITAL COURSE: This is a 51-year-old male who had previously underwent ACL reconstruction several years ago, who presented to clinic initially complaining of right knee pain. X-rays demonstrated advanced osteoarthritis of the right knee and it was thought he would benefit from a right total knee arthroplasty. On 02/02/2017, the patient was admitted and taken to the operating room where he underwent a right total knee arthroplasty. There were no intraoperative complications. The patient tolerated the procedure well. He was taken to the recovery room in stable condition. Pain was well controlled with oral pain medication. He was started on aspirin and SCDs for DVT prophylaxis. He remained hemodynamically stable and neurovascularly intact throughout his hospital stay. He began physical therapy on postoperative day 1, and was requesting to go to the acute re[facility] facility at [facility]. He was evaluated and deemed a good candidate for ARU. He was transferred on postoperative day 3. Prior to transfer, the incision was inspected and noted to be clean, dry and intact. Dressing changes were done prior to patient going to ARU. LABORATORY ANALYSIS: Hemoglobin of 11.1, hematocrit 33.8. Chemistry panel was within normal limits. DISCHARGE MEDICATIONS: 1. [place] 7.5/325 mg. 2. Tramadol 50 mg. 3. Neurontin 300 mg. 4. Protonix 40 mg. 5. Aspirin 325 mg. 6. Additionally, the patient is to resume all his normal home medications. DISCHARGE INSTRUCTIONS: The patient will be transferred to ARU in stable condition. He is to resume a normal diet. Activity includes weightbearing as tolerated on the right lower extremity, to begin physical therapy with home health. He will be transferred with the medications noted above and is to resume all of his normal home medications. The patient is to call the office or go to the ER for any concerns, including increased redness, swelling, drainage or fever, or any concerns regarding the operation or site of incision. Patient is to follow up in the office on 02/13/2017. Dictated By: LISSETTE GOODSON/DEE EDE Conf#: [id number] DID#: [id number] CC: JULIAN THORNTON MD;*EndCC* MTDD
== END 2017-02-05 14:27 | DRG 470 ==
LOC: REC 07:42 → MS1 16:06
PROVIDERS: ADMIT Orthopaedic Surgery; ATTEND Orthopaedic Surgery
PROC: 0SRC0J9 Replacement of Right Knee Joint with Synthetic Substitute, Cemented, Open Approach (ICD-10-PCS; principal; 2017-02-02 10:00)
DX: M17.11 Unilateral primary osteoarthritis, right knee (principal); I10 Essential (primary) hypertension; D64.9 Anemia, unspecified
CPT/HCPCS: 73560; 73562; 80048; 81001; 81003; 82728; 83036; 83540; 85014; 85018; 86850; 86900; 86901; 86920; 87081; 87086; 88300; 88304; 88311; 97110; 97116; 97162; 97166; 97530; Z7610; C1776; C9290; J0131; J0171; J0690; J0697; J0735; J1100; J1170; J1885; J2250; J2274; J2405; J2710; J2765; J3010; J3370; J7120

== ENCOUNTER 2017-02-05 14:30 | Inpatient (IN) | payer BC ==
[~2017-02-05] VITALS: Ht 180.3 cm; Wt 82.7 kg
[~2017-02-05 14:30] MED LIST changes: -ASPI-664 PO; +GABA300C PO; +HYDR-905 PO; +PANT40TA4 PO; +TRAM50TA2 PO
[2017-02-05 15:02] VITALS: BP 106/60; PULSE 75; RESP 18
[2017-02-05] MEDS ORDERED: BISACODYL 10 MG SUPP PR PRN ×2 (16:00)
[2017-02-05] MEDS ORDERED: MAGNESIUM HYDROXIDE 30ML CUP PO PRN (16:00)
[2017-02-05] MEDS ORDERED: LACTULOSE 30ML CUP PO PRN (16:00)
[2017-02-05] MEDS ORDERED: DIPHENHYDRAMINE 25 MG CAP PO PRN (16:00)
[2017-02-05] MEDS ORDERED: NA PHOSPHATE/BIPHOS 133 ML ENEMA PR PRN (16:00)
[2017-02-05] MEDS: HYDROCODONE/APAP (5/325) TAB PO PRN ×2 (17:49→20:19)
[2017-02-05] MEDS: PANTOPRAZOLE (EC) 40 MG TAB PO SCH (17:49)
[2017-02-05 18:09] LABS: ADD UMIC YES; URINE BILIRUBIN (Dip) NEGATIVE (NEGATIVE); URINE BLOOD (Dip) 1+ (NEGATIVE); URINE COLOR LT. YELLOW (YELLOW); URINE GLUCOSE (Dip) NEGATIVE (NEGATIVE); URINE KETONES (Dip) NEGATIVE (NEGATIVE); URINE LEUKOCYTE ESTERASE (Dip) NEGATIVE (NEGATIVE); URINE NITRITE (Dip) NEGATIVE (NEGATIVE); URINE TOTAL PROTEIN (Dip) NEGATIVE (NEGATIVE); URINE UROBILINOGEN (Dip) 0.2 E.U./dL (0.1-1.0)
[2017-02-05 19:15] VITALS: BP 112/58; RESP 18
[2017-02-05] MEDS: FERROUS SULFATE (EC) 325 MG TAB PO SCH (20:14)
[2017-02-05] MEDS: DOCUSATE SODIUM 100 MG CAP PO SCH (20:14)
[2017-02-05] MEDS: ASPIRIN (EC) 325 MG TAB PO SCH (20:15)
[2017-02-05] MEDS: SENNA TAB PO SCH (20:15)
[2017-02-05] MEDS: PREGABALIN 25 MG CAP PO SCH (20:19)
[2017-02-06] MEDS: HYDROCODONE/APAP (5/325) TAB PO PRN ×6 (01:03→23:03)
[2017-02-06] MEDS: PANTOPRAZOLE (EC) 40 MG TAB PO SCH ×2 (06:03→18:23)
[2017-02-06 06:23] LABS: ADD SCAN DIFF NO
[2017-02-06 06:32] LABS: BASOPHIL # 0.1 10^3/ul (0.0-0.1); BASOPHILS % 0.7 % (0.0-2.0); EOSINOPHILS # 0.4 10^3/ul (0.0-0.5); EOSINOPHILS % 4.4 % (0.0-7.0); HEMATOCRIT 35.7 % (42.0-52.0); HEMOGLOBIN 11.6 g/dl (14.0-18.0); LYMPHOCYTES # 1.9 10^3/ul (0.8-2.9); LYMPHOCYTES % 22.7 % (15.0-51.0); MEAN CORPUSCULAR HEMOGLOBIN 28.9 pg (29.0-33.0); MEAN CORPUSCULAR HGB CONC 32.5 g/dl (32.0-37.0); MEAN CORPUSCULAR VOLUME 88.8 fl (82.0-101.0); MEAN PLATELET VOLUME 9.1 fl (7.4-10.4); MONOCYTE # 0.8 10^3/ul (0.3-0.9); MONOCYTES % 10.1 % (0.0-11.0); NEUTROPHILS % 61.9 % (39.0-77.0); PLATELET COUNT 345 10^3/UL (140-415); RED BLOOD COUNT 4.02 10^6/ul (4.70-6.10); RED CELL DISTRIBUTION WIDTH 13.2 % (11.5-14.5); WHITE BLOOD COUNT 8.1 10^3/ul (4.8-10.8)
[2017-02-06 06:55] LABS: ALBUMIN 3.6 g/dl (3.3-4.9)
[2017-02-06 06:56] LABS: POTASSIUM 4.7 mmol/L (3.5-5.1)
[2017-02-06 06:58] LABS: BILIRUBIN,INDIRECT 0.3 mg/dl (0-1.1); BILIRUBIN,TOTAL 0.3 mg/dl (0.2-1.3); CREATININE 1.03 mg/dl (0.61-1.24)
[2017-02-06 06:59] LABS: ALBUMIN/GLOBULIN RATIO 1.09; CALCIUM 9.2 mg/dl (8.4-10.2); TOTAL PROTEIN 6.9 g/dl (6.1-8.1)
[2017-02-06 07:30] VITALS: BP 109/55; RESP 18
[2017-02-06] MEDS: PREGABALIN 25 MG CAP PO SCH (07:52)
[2017-02-06] MEDS: FERROUS SULFATE (EC) 325 MG TAB PO SCH ×2 (07:52→14:01)
[2017-02-06] MEDS: DOCUSATE SODIUM 100 MG CAP PO SCH ×2 (07:52→20:39)
[2017-02-06 08:30] VITALS: BP 83/50; PULSE 80
[2017-02-06] MEDS: VALSARTAN 80 MG TAB PO SCH (09:00)
[2017-02-06] MEDS: HYDROCHLOROTHIAZIDE 12.5 MG CAP PO SCH (09:00)
[2017-02-06 09:33] VITALS: BP 110/60; PULSE 90
[2017-02-06] MEDS: ASPIRIN (EC) 325 MG TAB PO SCH ×2 (11:30→20:39)
--- NOTE | 2017-02-06 12:39 | CONS ---
DATE OF ADMISSION: 02/05/2017 DATE OF CONSULTATION: 02/06/2017 REHABILITATION IMPAIRMENT CATEGORY: Other Orthopedic, Right Total Knee Arthroplasty ACTIVE COMORBIDITIES: 1. Hypertension. 2. Orthostatic hypotension. 3. Acute pain syndrome. 4. Impairments in self-care and mobility. HISTORY OF PRESENT ILLNESS: The patient is a pleasant 51-year-old gentleman who had been having severe increasing right knee pain despite conservative measures. The patient does have a history of previous ACL reconstruction and severe arthritis. The patient underwent total knee arthroplasty on 02/02/2017. The patient's hospital course has been notable for significant impairments in self-care and mobility as compared to baseline, and the patient has been cleared to transfer to the rehabilitation unit for comprehensive interdisciplinary rehab care. The patient was noted to have orthostatic hypotension on the rehabilitation unit. FUNCTIONAL HISTORY: Prior to recent events, he was independent in self-care tasks and mobility. Currently, he requires minimal assist for mobility and self -care tasks. I have reviewed the preadmission screen and the patient's current functional status is consistent with the preadmission screen. SOCIAL HISTORY: The patient lives at home and hopes to return there upon discharge. PAST MEDICAL HISTORY: 1. Severe arthritis of the knee. 2. Hypertension. CURRENT MEDICATIONS: 1. Ecotrin 325 p.o. b.i.d. 2. Benadryl p.r.n. 3. Colace 100 mg b.i.d. 4. Ferrous sulfate 325 p.o. t.i.d. 5. Hydrochlorothiazide 12.5 mg p.o. daily. 6. [place] p.r.n. 7. Protonix 40 mg b.i.d. 8. Lyrica 50 mg p.o. b.i.d. 9. Ultram p.r.n. 10. Diovan 80 mg p.o. daily. ALLERGIES: THE PATIENT WITH NO KNOWN DRUG ALLERGIES. PHYSICAL EXAMINATION: VITAL SIGNS: The patient is currently afebrile with stable vital signs. He is currently afebrile. He did have episode of orthostatic hypotension with systolic blood pressure down to 80/50, improved with return to bed. HEENT: Extraocular motion intact. Oropharynx clear. NECK: Supple. LUNGS: Clear anteriorly. CARDIAC: S1, S2. ABDOMEN: Soft, nontender, positive bowel sounds. NEUROLOGIC: He is awake and alert and oriented x3. He can follow simple 1- step commands. Cranial nerves are grossly intact. He has good strength in bilateral upper extremity and the left lower extremity. PLAN: The patient has been admitted for comprehensive interdisciplinary acute rehab and is anticipated to tolerate 3 hours of daily therapy in divided doses for at least 5/7 days a week. Treatment plan will include: 1. Physical therapy to focus on bed mobility, transfers, and household ambulation with the goal of having the patient reach standby assist level. 2. Occupational therapy to focus on hygiene, grooming, dressing, bathing, and toileting activities with the goal of having the patient reach standby assist level. 3. Rehabilitation nursing for carryover of therapeutic interventions, the goal of continent of bowel and bladder, and the goal of pain adequately managed on oral medications. Will montior blood pressure closely, and add abdominal binder and HARPER hose for out of bed activities. REHABILITATION BARRIER: Pain. INTERVENTION FOR BARRIER: Interdisciplinary approach. ESTIMATED LENGTH OF STAY: 10 days. DISPOSITION GOAL: Home. I acknowledge that I performed a full physical examination on this patient within 24 hours of admission to the rehabilitation unit. I believe the patient is a good candidate for comprehensive interdisciplinary rehab care and is anticipated to make reasonable goals in a reasonable period of time as outlined above. Dictated By: RICARDO DELONG/DEE DEE Conf#: [id number] DID#: [id number] MTDD
--- NOTE | 2017-02-06 19:25 | CONS ---
DATE OF ADMISSION: 02/05/2017 DATE OF CONSULTATION: REASON FOR CONSULTATION: Management of hypertension and orthostatic hypotension. HISTORY OF PRESENT ILLNESS: A 51-year-old gentleman with a history of right knee pain with previous ACL reconstruction of the right knee joint underwent a total knee arthroplasty on 02/02/2017. Has subsequently been transferred to acute rehab unit for continuing care prior to discharge home. Of n ote, he has a recent history of orthostatic hypotension and prior history of hypertension. PAST MEDICAL HISTORY: As above. MEDICATIONS: Per chart. Include: 1. Ecotrin. 2. Benadryl. 3. Colace. 4. Ferrous sulfate. 5. Hydrochlorothiazide. 6. [place] p.r.n. 7. Protonix. 8. Lyrica. 9. Ultram. 10. Diovan. ALLERGIES: NO KNOWN ALLERGIES. SOCIAL HISTORY: Nonsmoker, no alcohol, no history of drug use. FAMILY HISTORY: Noncontributory. SYSTEMS REVIEW: A 12-point review of systems negative other than that mentioned above. PHYSICAL EXAMINATION: GENERAL: Well-nourished, well-developed gentleman, comfortable at rest, no acute distress. VITAL SIGNS: Currently afebrile, pulse is 70, blood pressure 103/67, O2 saturation 98% on room air. NECK: Supple. No JVD or lymphadenopathy. CARDIAC: S1, S2. No added sounds or murmurs. CHEST: Diminished air entry bilaterally. ABDOMEN: Soft, nontender. No guarding or rebound. EXTREMITIES: No cyanosis, clubbing, edema. NEUROLOGIC: Grossly intact. No focal deficits. LABORATORY DATA: White count 11.1, hematocrit 33.8. Chemistry within normal limits. IMPRESSION AND PLAN: 1. Iron deficiency anemia, appears to be clinically improving. 2. Recent right knee replacement, doing well from orthopedic standpoint. 3. History of hypertension. PLAN: 1. Continue current medications. 2. Discontinue ferrous sulfate as hemoglobin appears to be resolving to normal. 3. Continue stool softeners. 4. Continue physical therapy. 5. DVT and GI prophylaxis. Dictated By: EMMA FAGAN MD SV/NTS Conf#: [id number] DID#: [id number] CC: RICARDO TEJADA MD;*EndCC*
[2017-02-06 20:07] VITALS: BP 108/59; RESP 18
[2017-02-06] MEDS: SENNA TAB PO SCH (20:39)
[2017-02-06] MEDS ORDERED: PREGABALIN 25 MG CAP PO SCH (21:00)
[2017-02-07] MEDS: HYDROCODONE/APAP (5/325) TAB PO PRN ×3 (05:31→23:37)
[2017-02-07] MEDS: PANTOPRAZOLE (EC) 40 MG TAB PO SCH ×2 (06:42→18:00)
[2017-02-07 07:33] VITALS: BP 116/70; RESP 18
[2017-02-07] MEDS: VALSARTAN 80 MG TAB PO SCH (09:00)
[2017-02-07] MEDS: HYDROCHLOROTHIAZIDE 12.5 MG CAP PO SCH (09:00)
[2017-02-07] MEDS: DOCUSATE SODIUM 100 MG CAP PO SCH ×2 (09:04→21:18)
[2017-02-07] MEDS: ASPIRIN (EC) 325 MG TAB PO SCH ×2 (09:04→21:18)
--- NOTE | 2017-02-07 10:07 | CONS ---
Date/Time of Note Date/Time of Note DATE: 02/07/17 TIME: 10:05 Consult Date/Type/Reason Admit Date/Time Feb 05, 2017 at 14:30 Initial Consult Date Type of Consultation: internal medicine Subjective Patient comfortable this morning however still has mild pain in his right leg which is somewhat more swollen than his left. He has no evidence of erythema no positive Homans sign. Patient states he would like today. He also states [place] was making him feel unwell. Objective Vital Signs Date Time Temp Pulse Resp B/P Pulse Ox O2 Delivery O2 Flow Rate FiO2 02/07/17 07:33 98.4 72 18 116/70 97 02/05/17 15:02 Room Air Intake and Output 02/06/17 02/06/17 02/07/17 15:00 23:00 07:00 Intake Total 860 ml 1600 ml Output Total 680 ml 840 ml Balance 180 ml 760 ml Exam PHYSICAL EXAMINATION: GENERAL: Well-nourished, well-developed gentleman, comfortable at rest, no acute distress. VITAL SIGNS: As above, NECK: Supple. No JVD or lymphadenopathy. CARDIAC: S1, S2. No added sounds or murmurs. CHEST: Diminished air entry bilaterally. ABDOMEN: Soft, nontender. No guarding or rebound. EXTREMITIES: No cyanosis, clubbing, edema. NEUROLOGIC: Grossly intact. No focal deficits. Results/Medications Result Diagram: 02/06/17 0555 02/06/17 0555 Medications Current Medications Hydrochlorothiazide (Hydrochlorothiazide) 12.5 mg DAILY PO ; Start 02/06/17 at 09:00 Valsartan (Diovan) 80 mg DAILY PO ; Start 02/06/17 at 09:00 Bisacodyl (Dulcolax Supp) 10 mg Q12H PRN [place] CONSTIPATION; Start 02/05/17 at 16: 00 Magnesium Hydroxide (Milk Of Mag) 30 ml BID PRN PO CONSTIPATION; Start at 16:00 Sodium Biphosphate/ Sodium Phosphate (Fleet Enema) 133 ml DAILY PRN [place] CONSTIPATION; Start 02/05/17 at 16:00 Docusate Sodium (Colace) 100 mg BID PO Last administered on 02/07/17t 09:04; Admin Dose 100 MG; Start 02/05/17 at 21:00 Diphenhydramine HCl (Benadryl) 25 mg Q6H PRN PO PRURITUS; Start 02/05/17 at 16: 00 Aspirin (Ecotrin) 325 mg BID PO Last administered on 02/07/17 09:04; Admin Dose 325 MG; Start 02/05/17 at 21:00 Pantoprazole (Protonix Tab) 40 mg BID@,18 PO Last administered on 02/07/17 06:42; Admin Dose 40 MG; Start 02/05/17 at 18:00 Acetaminophen/ Hydrocodone Bitart ([place] (5/325)) 1 tab Q4H PRN PO PAIN Last administered on 02/07/17 05:31; Admin Dose 1 TAB; Start 02/05/17 at 16:00 Acetaminophen/ Hydrocodone Bitart ([place] (5/325)) 2 tab Q4H PRN PO PAIN Last administered on 02/06/17 11:30; Admin Dose 2 TAB; Start 02/05/17 at 16:00 Senna (Senokot) 1 tab HS PO Last administered on 02/06/17 20:39; Admin Dose 1 TAB; Start 02/05/17 at 21:00 Lactulose (Enulose) 20 gm DAILY PRN PO CONSTIPATION Last administered on 07:49; Admin Dose 20 GM; Start 02/05/17 at 16:00 Bisacodyl (Dulcolax Supp) 10 mg DAILY PRN [place] CONSTIPATION; Start 02/05/17 at 16 :00 Pregabalin (Lyrica) 25 mg BID PO ; Start 02/06/17 at 21:00; Status Future Hold Assessment/Plan Chief Complaint/Hosp Course IMPRESSION AND PLAN: 1. Iron deficiency anemia, appears to be clinically improving. We'll stop iron replacement 2. Recent right knee replacement, doing well from orthopedic standpoint. Swelling concerning for possible deep vein thrombosis order Doppler ultrasound 3. History of hypertension. PLAN: 1. Continue current medications. Change pain medications 2. Discontinue ferrous sulfate as hemoglobin appears to be resolving to normal. 3. Continue stool softeners. 4. Lower extremity Dopplers rule out deep vein thrombosis right leg Disposition Discharge planning per acute rehabilitation team Problems: EMMA FAGAN MD, [facility] Feb 07, 2017 10:07
--- NOTE | 2017-02-07 11:07 | RADRPT ---
PROCEDURE: US DVT. CLINICAL INDICATION: History of right total knee replacement. Pain. Evaluate for deep venous thro mbosis. TECHNIQUE: Multiple longitudinal and transverse images of the right lower extremity veins were obt ained with martin scale and color Doppler imaging. 2D grayscale measurements with compression, color Doppler flow, and augmentation was performed. The calf veins were interrogated as well. COMPARISON: No prior studies are available for comparison. FINDINGS: The right common femoral, superficial femoral and popliteal veins are normally compressible througho ut. Color flow demonstrates normal filling of the vessel. Normal waveforms are visualized and ther e is normal response to augmentation. IMPRESSION: 1. No evidence of a deep vein thrombosis involving the right lower extremity. RPTAT: [facility] Physician Iesha Date Time Electronically viewed and signed by Physician Iesha on 02/07/2017 11:06 /
--- NOTE | 2017-02-07 12:17 | CONS ---
Date/Time of Note Date/Time of Note DATE: 02/07/17 TIME: 12:15 Consult Date/Type/Reason Admit Date/Time Feb 05, 2017 at 14:30 Initial Consult Date Type of Consultation: internal medicine Subjective patient reports some anxiety in confined space Objective pulm-cta abd-soft sba ambulation Vital Signs Date Time Temp Pulse Resp B/P Pulse Ox O2 Delivery O2 Flow Rate FiO2 02/07/17 07:33 98.4 72 18 116/70 97 02/05/17 15:02 Room Air Intake and Output 02/06/17 02/06/17 02/07/17 15:00 23:00 07:00 Intake Total 860 ml 1600 ml Output Total 680 ml 840 ml Balance 180 ml 760 ml Results/Medications Result Diagram: 02/06/17 0555 02/06/17 0555 Medications Current Medications Hydrochlorothiazide (Hydrochlorothiazide) 12.5 mg DAILY PO ; Start 02/06/17 at 09:00 Valsartan (Diovan) 80 mg DAILY PO ; Start 02/06/17 at 09:00 Bisacodyl (Dulcolax Supp) 10 mg Q12H PRN IN CONSTIPATION; Start 02/05/17 at 16: 00 Magnesium Hydroxide (Milk Of Mag) 30 ml BID PRN PO CONSTIPATION; Start at 16:00 Sodium Biphosphate/ Sodium Phosphate (Fleet Enema) 133 ml DAILY PRN IN CONSTIPATION; Start 02/05/17 at 16:00 Docusate Sodium (Colace) 100 mg BID PO Last administered on 02/07/17 09:04; Admin Dose 100 MG; Start 02/05/17 at 21:00 Diphenhydramine HCl (Benadryl) 25 mg Q6H PRN PO PRURITUS; Start 02/05/17 at 16: 00 Aspirin (Ecotrin) 325 mg BID PO Last administered on 02/07/17 09:04; Admin Dose 325 MG; Start 02/05/17 at 21:00 Pantoprazole (Protonix Tab) 40 mg BID@,18 PO Last administered on 02/07/17 06:42; Admin Dose 40 MG; Start 02/05/17 at 18:00 Acetaminophen/ Hydrocodone Bitart ([place] (5/325)) 1 tab Q4H PRN PO PAIN Last administered on 02/07/17 05:31; Admin Dose 1 TAB; Start 02/05/17 at 16:00 Acetaminophen/ Hydrocodone Bitart ([place] (5/325)) 2 tab Q4H PRN PO PAIN Last administered on 02/06/17 11:30; Admin Dose 2 TAB; Start 02/05/17 at 16:00 Senna (Senokot) 1 tab HS PO Last administered on 02/06/17 20:39; Admin Dose 1 TAB; Start 02/05/17 at 21:00 Lactulose (Enulose) 20 gm DAILY PRN PO CONSTIPATION Last administered on 07:49; Admin Dose 20 GM; Start 02/05/17 at 16:00 Bisacodyl (Dulcolax Supp) 10 mg DAILY PRN IN CONSTIPATION; Start 02/05/17 at 16 :00 Pregabalin (Lyrica) 25 mg BID PO ; Start 02/06/17 at 21:00; Status Future Hold Tramadol HCl (Ultram) 50 mg Q6H PRN GTB PAIN LEVEL 6-10; Start 02/07/17 at 11: 00 Assessment/Plan Additional Assessment/Plan Right Total Knee Arthroplasty Continue rehab program Hypertension. Orthostatic hypotension-resolved Acute pain syndrome- patient doesnt like the way the pain meds makes him feel Dispo- home today or tomorrow RICARDO TEJADA MD Feb 07, 2017 12:17
[2017-02-07] MEDS: traMADol 50 MG TAB GTB PRN (13:53)
--- NOTE | 2017-02-07 14:50 | PN ---
Date/Time of Note Date/Time of Note DATE: 02/07/17 TIME: 14:48 Assessment/Plan Lines/Catheters IV Catheter Type (from Nrsg): Saline Lock Rosario in Place (from Nrsg): No Assessment/Plan Assessment/Plan Stable in ARU, s/p right TKA -pain meds as needed -ASA/SCDs -dressing changed -OOB with PT -likely will be discharged from ARU tomorrow -follow up in the office on 02/13/17 Subjective 24 Hr Interval Summary Doing well at ARU. Pain and ROM improving. VSS, afebrile. Progressing well with PT. Would like to go home tomorrow. Doppler of right leg is negative for DVT. Exam/Review of Systems Vital Signs Vitals Vital Signs Date Time Temp Pulse Resp B/P Pulse Ox O2 Delivery O2 Flow Rate FiO2 02/07/17 07:33 98.4 72 18 116/70 97 02/05/17 15:02 Room Air Intake and Output 02/06/17 02/06/17 02/07/17 15:00 23:00 07:00 Intake Total 860 ml 1600 ml Output Total 680 ml 840 ml Balance 180 ml 760 ml Exam Free Text/Dictation Dressing dry Incision clean, dry, and intact without redness or drainage Thigh soft 5/5 Quadriceps, Tibialis Anterior, EHL, Gastroc, Soleus, Peroneals Normal sensation Palpable DT/PT, CR <2 sec No distal edema Results Result Diagram: 02/06/17 0555 02/06/17 0555 LISSETTE MAURICE PA-C Feb 07, 2017 14:50
[2017-02-07 20:59] VITALS: BP 127/72; RESP 18
[2017-02-07] MEDS: SENNA TAB PO SCH (21:18)
[2017-02-08] MEDS: HYDROCODONE/APAP (5/325) TAB PO PRN ×2 (05:41→09:49)
[2017-02-08] MEDS: PANTOPRAZOLE (EC) 40 MG TAB PO SCH (05:41)
[2017-02-08 07:43] VITALS: BP 120/68; RESP 18
[2017-02-08] MEDS: HYDROCHLOROTHIAZIDE 12.5 MG CAP PO SCH (08:55)
[2017-02-08] MEDS: VALSARTAN 80 MG TAB PO SCH (08:56)
[2017-02-08] MEDS: ASPIRIN (EC) 325 MG TAB PO SCH (08:56)
[2017-02-08] MEDS: DOCUSATE SODIUM 100 MG CAP PO SCH (08:56)
--- NOTE | 2017-02-08 11:07 | CONS ---
Date/Time of Note Date/Time of Note DATE: 02/08/17 TIME: 11:06 Assessment/Plan Assessment/Plan Additional Assessment/Plan Assessment recommendations; next 1. Patient admitted for right knee replacement doing well #2 iron deficiency anemia 3. Hypertension Patient will be discharged home. Continue physical therapy on outpatient basis. Consultation Date/Type/Reason Admit Date/Time Feb 05, 2017 at 14:30 Initial Consult Date Type of Consultation: internal medicine 24 HR Interval Summary Free Text/Dictation Patient condition is stable. Denies any shortness of breath chest pain complains of mild right knee pain, patient able to ambulate. General exam; young male, awake alert currently in no distress. Exam/Review of Systems Vital Signs Vitals Vital Signs Date Time Temp Pulse Resp B/P Pulse Ox O2 Delivery O2 Flow Rate FiO2 02/08/17 07:43 98.5 78 18 120/68 97 02/05/17 15:02 Room Air Intake and Output 02/07/17 02/07/17 02/08/17 15:00 23:00 07:00 Intake Total 1400 ml 600 ml 1600 ml Output Total 350 ml Balance 1400 ml 250 ml 1600 ml Exam HEENT exam is; supple neck, no JVD. No lymphadenopathy. Chest examined; clear to auscultation. S1-S2 audible, no murmurs. Regular rhythm. Abdomen exam is; benign Extremity examination; there is a dressing applied over the right knee. Range of motion is limited. No peripheral edema. 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 Results Result Diagram: 02/06/17 0555 02/06/17554 Medications Medications Current Medications Hydrochlorothiazide (Hydrochlorothiazide) 12.5 mg DAILY PO Last administered on 02/08/17 08:55; Admin Dose 12.5 MG; Start 02/06/17 at 09:00 Valsartan (Diovan) 80 mg DAILY PO Last administered on 02/08/17 08:56; Admin Dose 80 MG; Start 02/06/17 at 09:00 Bisacodyl (Dulcolax Supp) 10 mg Q12H PRN IN CONSTIPATION; Start 02/05/17 at 16: 00 Magnesium Hydroxide (Milk Of Mag) 30 ml BID PRN PO CONSTIPATION; Start at 16:00 Sodium Biphosphate/ Sodium Phosphate (Fleet Enema) 133 ml DAILY PRN IN CONSTIPATION; Start 02/05/17 at 16:00 Docusate Sodium (Colace) 100 mg BID PO Last administered on 02/08/17 08:56; Admin Dose 100 MG; Start 02/05/17 at 21:00 Diphenhydramine HCl (Benadryl) 25 mg Q6H PRN PO PRURITUS; Start 02/05/17 at 16: 00 Aspirin (Ecotrin) 325 mg BID PO Last administered on 02/08/17 08:56; Admin Dose 325 MG; Start 02/05/17 at 21:00 Pantoprazole (Protonix Tab) 40 mg BID@18 PO Last administered on 02/08/17 05:41; Admin Dose 40 MG; Start 02/05/17 at 18:00 Acetaminophen/ Hydrocodone Bitart ([place]iter (5/325)) 1 tab Q4H PRN PO PAIN Last administered on 02/08/17 09:49; Admin Dose 1 TAB; Start 02/05/17 at 16:00 Acetaminophen/ Hydrocodone Bitart (Leiter (5/325)) 2 tab Q4H PRN PO PAIN Last administered on 02/06/17 11:30; Admin Dose 2 TAB; Start 02/05/17 at 16:00 Senna (Senokot) 1 tab HS PO Last administered on 02/07/17 21:18; Admin Dose 1 TAB; Start 02/05/17 at 21:00 Lactulose (Enulose) 20 gm DAILY PRN PO CONSTIPATION Last administered on 07:49; Admin Dose 20 GM; Start 02/05/17 at 16:00 Bisacodyl (Dulcolax Supp) 10 mg DAILY PRN IN CONSTIPATION; Start 02/05/17 at 16 :00 Pregabalin (Lyrica) 25 mg BID PO ; Start 02/06/17 at 21:00; Status Future Hold Tramadol HCl (Ultram) 50 mg Q6H PRN GTB PAIN LEVEL 6-10 Last administered on 13:53; Admin Dose 50 MG; Start 02/07/17 at 11:00 TASH WALTER Feb 08, 2017 11:07
[2017-02-08] MEDS: traMADol 50 MG TAB GTB PRN (11:31)
[2017-02-08] MEDS ORDERED: HYDROCODONE/APAP (5/325) TAB PO ONE (12:00)
== END 2017-02-08 12:00 | disposition home or self-care (01) | DRG 561 ==
LOC: VRC 14:30
PROVIDERS: ADMIT Physical Medicine & Rehabilitation; ATTEND Internal Medicine Pulmonary Disease
DX: Z47.1 Aftercare following joint replacement surgery (principal); I10 Essential (primary) hypertension; Z96.651 Presence of right artificial knee joint; I95.1 Orthostatic hypotension; Z74.09 Other reduced mobility; D50.9 Iron deficiency anemia, unspecified; R60.0 Localized edema; G89.18 Other acute postprocedural pain
CPT/HCPCS: 80053; 81001; 81003; 85025; 87081; 87086; 93971; 97116; 97150; 97162; 97166; 97530; 97535

== ENCOUNTER → 2017-02-13 | Outpatient (CLI) | payer BC ==
[~2017-02-13] MED LIST changes: -HYDR12.58 PO; -VALS80TA2 PO
--- NOTE | 2017-02-13 12:37 | RADRPT ---
PROCEDURE: XR right knee. CLINICAL INDICATION: Knee pain. TECHNIQUE: AP and lateral views are available for review. COMPARISON: No comparison available FINDINGS: Previous ACL repair with hardware remaining. There is a postoperative total knee replacement. There is no evidence of loosening of the prosthesis . There is no evidence of hardware failure. Anterior skin kindra are in place. The osseous structur es are normal in mineralization, architecture and alignment No acute fracture or dislocation is seen .No osseous lesions are identified. There is soft tissue swelling . IMPRESSION: ACL repair with hardware knee Unremarkable postoperative total knee replacement. RPTAT: HGDB .Ruben Nixon MD, Date Time Electronically viewed and signed by .Ruben Nixon MD, on 02/13/2017 12:36 .B/
--- NOTE | 2017-02-14 02:02 | HKNOTE ---
DATE OF SERVICE: 02/13/2017 INTERVAL HISTORY: The patient presents today for his first postoperative evaluation on his right kn ee. He is 10 days status post right total knee arthroplasty. He is doing well overall. His pain i s better controlled with tramadol and [place]. He has been taking aspirin twice a day for DVT prophyl axis as well. He left the acute rehabilitation voluntarily at [facility] and is now home a nd doing exercises on his own. He has not started home health PT unfortunately, however, though. H e denies any fevers or chills. He is ambulating with a front-wheel walker. He presents today for e valuation. PHYSICAL EXAMINATION: GENERAL: Today, alert and oriented x4 and in no acute distress. RIGHT KNEE: Exam of the incision demonstrates it to be clean, dry, and intact. He is ambulating wi th a front-wheel walker. Range of motion is 0 to 95 degrees. Varus and valgus forces are stable. There is no erythema or warmth noted. Compartments are otherwise soft. No pus or drainage. Homans sign is negative. He is neurovascularly intact distally. IMAGING: X-rays of the right knee were obtained today and reviewed by me. They demonstrate good an atomic alignment with no fractures or dislocation identified. ASSESSMENT: Ten days status post right total knee arthroplasty, doing well. PLAN: The kindra were removed today and Steri-Strips were applied. He is continue aspirin twice d aily for 6 weeks for DVT prophylaxis. He is to continue the exercises on his own at home and begin physical therapy with home health. He will also transition to an outpatient physical therapy sharda cannon when appropriate. We will see him back in 4 weeks for repeat evaluation. The patient has any con cerns, in the meantime, he is to call the office. Dictated By: LISSETTE CALI for JULIAN GOODSON/DEE DEE Conf#: [id number] DID#: [id number]
== END | disposition home or self-care (01) ==
LOC: HKI 10:22
PROVIDERS: ATTEND Orthopaedic Surgery
DX: Z47.1 Aftercare following joint replacement surgery (principal); Z96.651 Presence of right artificial knee joint

== ENCOUNTER → 2017-03-06 | Outpatient (CLI) | payer BC | END | disposition home or self-care (01) | LOC: HKI 10:46 | PROVIDERS: ATTEND Orthopaedic Surgery | DX: Z09 Encounter for follow-up examination after completed treatment for conditions other than malignant neoplasm (principal); I10 Essential (primary) hypertension; Z96.651 Presence of right artificial knee joint | CPT/HCPCS: G0463 ==

== ENCOUNTER → 2017-04-28 | Outpatient (CLI) | payer BC ==
--- NOTE | 2017-04-28 14:45 | RADRPT ---
PROCEDURE: Right knee radiographs. CLINICAL INDICATION: Right knee pain. Postop. TECHNIQUE: Three views. Weight bearing. Frontal, lateral, and patellar view. COMPARISON: 02/13/2017. FINDINGS: There is no fracture or dislocation. There is a joint effusion. There is a total right knee arthroplasty which appears satisfactory. There is no lytic or blastic lesion. There has been prior anterior cruciate ligament repair with hardware noted. IMPRESSION: 1. Satisfactory postoperative appearance of the right knee. 2. Small joint effusion. RPTAT: QQ .Harshal Sage MD, MD Date Time Electronically viewed and signed by .Harshal Sage MD, MD on 04/28/2017 14:45 .R/
== END | disposition home or self-care (01) ==
LOC: HKI 10:37
PROVIDERS: ATTEND Orthopaedic Surgery
DX: Z47.1 Aftercare following joint replacement surgery (principal); Z96.651 Presence of right artificial knee joint; M25.461 Effusion, right knee